=== PATIENT | female | born 1995 | race Caucasian/White ===

== ENCOUNTER → 2017-08-06 | Outpatient (CLI) | payer SELFPAY ==
[2017-08-06 13:09] VITALS: BP 127/78
--- NOTE | 2017-08-07 06:30 | Forensic Nursing Medical Dir ---
Forensic Nursing Note [employer] C[employer] Operator chart review completed. Case discussed with EMIR. LUNA LEONARDO MD Aug 07, 2017 06:30
== END ==
LOC: FNS 12:48
PROVIDERS: ATTEND Emergency Medicine
DX: Z02.89 Encounter for other administrative examinations (principal)

== ENCOUNTER 2017-12-17 21:10 | Emergency (ER) | payer SELFPAY | END 2017-12-17 21:27 | disposition left against medical advice (07) | LOC: EDUNIT# 21:10 → ER 21:14 | DX: R10.9 Unspecified abdominal pain (principal) ==

== ENCOUNTER → 2020-03-02 | Outpatient (CLI) | payer OTHER ==
--- NOTE | 2020-03-02 15:20 | Diagnostic Imaging Report ---
INDICATION: patient, survey. TECHNIQUE: Multiple real-time grayscale images were obtained over the gravid uterus. COMPARISON: None. FINDINGS: A single live intrauterine fetus is seen measuring at 21 weeks 6 days by composite measurements. Fetus is in transverse orientation with head on maternal right side. Amniotic fluid index is 10.96 cm, which is normal. Placenta is posterior and grade 1 with no evidence of previa. heart rate is 146 beats minute. Maternal adnexa were not well seen. survey shows normal-appearing bladder, stomach and intracranial ventricles. Normal four-chamber heart view is seen. Normal-appearing cord insertion and three-vessel cord are seen. Normal views of the spine are seen. kidneys are not well seen due to position. Biometrical measurements are as follows: Biparietal 5.11 cm, age 21 weeks 4 days. Head circumference 19.11 cm, age 21 weeks 3 days. Abdominal circumference 16.72 cm, age 21 weeks 6 days. Femur length 3.78 cm, age 22 weeks 1 days. Sonographic estimate age: 21 weeks 6 days. Sonographic estimated date of delivery: 07/07/2020. Estimated Weight: 454 gm (+/- 66 gm). LMP percentile: 35%. heart rate: 146 beats per minute. number: 1 of 1. IMPRESSION: Single live intrauterine fetus measuring 21 weeks 6 days in size, as described above. kidneys were not well seen due to position, survey is otherwise unremarkable. Consider limited follow-up as clinically warranted. Dictated by: Dictated on workstation # [id number]
== END ==
LOC: RAD 13:25
PROVIDERS: ATTEND Obstetrics & Gynecology
DX: Z36.9 Encounter for antenatal screening, unspecified (principal); Z3A.17 17 weeks gestation of pregnancy
CPT/HCPCS: 76805

== ENCOUNTER → 2020-05-24 | Outpatient (CLI) | payer OTHER ==
--- NOTE | 2020-05-24 14:03 | Diagnostic Imaging Report ---
INDICATION: Follow-up kidneys. TECHNIQUE: Multiple real-time grayscale images were obtained over the gravid uterus. COMPARISON: 03/02/2020. FINDINGS: There is a single live fetus in a cephalic presentation. heart rate was recorded at 136 bpm. Placenta is posterior. Amniotic fluid volume is normal. Cervical length is 4.1 cm. kidneys are visualized on today's study and unremarkable. IMPRESSION: Unremarkable limited obstetrical ultrasound. Dictated by: Dictated on workstation # [id number]
== END ==
LOC: RAD 11:43
PROVIDERS: ATTEND Nurse Practitioner Women's Health
DX: Z36.2 Encounter for other antenatal screening follow-up (principal)
CPT/HCPCS: 76816

== ENCOUNTER 2020-07-11 19:00 | Inpatient (IN) | payer OTHER ==
[2020-07-11] MEDS ORDERED: D5 LR IV SOLUTION 1,000 ML IV ONE (19:29)
[2020-07-11] MEDS ORDERED: MISOPROSTOL 100 MCG (CYTOTEC) TAB ONE (22:00)
[2020-07-11] MEDS ORDERED: NS IV 500 ML 500 ML ONE (22:00)
[2020-07-12] VITALS (39 sets, daily range): BP systolic 96–148; BP diastolic 53–94
[2020-07-12] MEDS ORDERED: MISOPROSTOL 100 MCG (CYTOTEC) TAB ONE (02:12)
[2020-07-12] MEDS ORDERED: D5 LR IV SOLUTION 1,000 ML IV ONE ×2 (02:16→10:13)
[2020-07-12] MEDS ORDERED: fentaNYL 2 mcg/ml BUPIVA 0.125 100 ML ONE ×2 (03:57→12:50)
[2020-07-12] MEDS ORDERED: fentaNYL INJECTION 100 MCG/2 ML AMP ONE (04:25)
[2020-07-12] MEDS ORDERED: BUPIVACAINE 0.25% 30 ML (SENSORCAINE) VIAL ONE (05:05)
[2020-07-12] MEDS ORDERED: LIDOCAINE PF 2% 5 ML (XYLOCAINE) VIAL ONE (05:05)
[2020-07-12] MEDS ORDERED: ONDANSETRON 4 MG/2 ML (SDV) Z0FRAN ONE ×2 (05:30→13:13)
[2020-07-12] MEDS ORDERED: OXYTOCIN PRE-MIX DRIP 500 ML IV ONE (06:49)
--- NOTE | 2020-07-12 07:10 | NUR ---
report received from EMIR Mccarty. care assumed of pt. admission completed during [facility] down time. see paper charting for further.
--- NOTE | 2020-07-12 08:12 | History & Physical-OB ---
OB - Chief Complaint & HPI Date/Time Date of Admission: Date of Admission: Jul 11, 2020 at 19:08 Date seen by a Provider: Jul 12, 2020 Time Seen by a Provider: 07:55 Chief Complaint/History OB-Reason for Admission/Chief: Onset of Labor Hx : 1 Hx Para: 0 Expected Date of Delivery: Jul 06, 2020 Gestational Age in Weeks: 40 Gestational Age in Days: 6 Indication for induction: post dates Admission Nurse Assessment Rev: Yes Allergies and Home Medications Allergies Coded Allergies: No Known Drug Allergies (Unverified , 07/17/18) Patient Home Medication List Home Medication List Reviewed: Yes OB - History Hx of Present Care: Yes Ultrasounds: Normal mid trimester US Obstetrical Complications: None Medical Complications: None Patient Past Medical History n/a Social History/Family History HIV/AIDS: No Sexually Transmitted Disease: No Immunizations Hepatitis A: No Hepatitis B: No Tetanus Booster (TDap): Less than 5yrs OB - Admission Exam Physical Exam HEENT: NCAT Heart: Rhythm Normal Lungs: Clear Abdomen: Gravid Extremities: Normal Reflexes: Normal Cervical Dilatation: 3cm Effacement: 75% Station: -1 Membranes: Intact Heart Rate: 130's Accelerations: Accelerations Present Decelerations: No Decelerations Short Term Variability: Present Fpc Variability: Average (6-25) Contractions on Admission: 6-10 Minutes Apart Intensity: Mild Patel Scoring Tool (Modified) Dilation (cm): 3-4cm (2) Effacement (%): 51-79% (2) Descent/Station: -2 (1) Cervix Consistency: Soft (2) Cervix Position: Anterior (2) Subtract 1 point for: Nulliparity (-1) Patel Score: 8 Labs Laboratory Tests Test 07/11/20 20:15 Range/Units OB - Assessment/Plan/Diagnosis Assessment Assessment: active labor Admission Dx 24 yo G1 @ 40.6 Post dates induction GBS neg Admission Status: Inpatient Order (span 2 midnights) Reason for Inpatient Admission: Induction of labor at term Plan Plan: Induction Induction Method: per Misoprostol Protocol SCOTTIE GAFFNEY DO Jul 12, 2020 08:12
[2020-07-12 12:26] LABS: CLARITY,URINE CLEAR; COLOR,URINE YELLOW; GLUCOSE, URINE (UA) NEGATIVE (NEGATIVE); KETONES,URINE NEGATIVE (NEGATIVE); NITRITE,URINE NEGATIVE (NEGATIVE); PH,URINE 6.5 (5-9); PROTEIN,URINE TRACE (NEGATIVE)
[2020-07-12 12:27] LABS: BACTERIA,URINE TRACE /HPF; BILIRUBIN,URINE NEGATIVE (NEGATIVE); LEUKOCYTE ESTERASE ,URINE NEGATIVE (NEGATIVE); RBC,URINE 0-2 /HPF; WBC,URINE RARE /HPF
[2020-07-12 12:28] LABS: HEMATOCRIT 33 % (35-52); HEMOGLOBIN 11.4 G/DL (11.5-16.0); LYMPHOCYTES % (AUTO) 20 % (12-44); MEAN CORPUSCULAR HEMOGLOBIN 32 PG (25-34); MEAN CORPUSCULAR HGB CONC 35 G/DL (32-36); MEAN CORPUSCULAR VOLUME 94 FL (80-99); MEAN PLATELET VOLUME 10.5 FL (7.4-10.4); MONOCYTES % (AUTO) 7 % (0-12); NEUTROPHILS % (AUTO) 71 % (42-75); PLATELET COUNT 259 10^3/uL (130-400); RED CELL DISTRIBUTION WIDTH 14.1 % (10.0-14.5); WHITE BLOOD COUNT 12.7 10^3/uL (4.3-11.0)
[2020-07-12 12:29] LABS: BASOPHILS % (AUTO) 0 % (0-10); EOSINOPHILS # (AUTO) 0.2 10^3/uL (0.0-0.3); EOSINOPHILS % (AUTO) 1 % (0-10); LYMPHOCYTES # (AUTO) 2.6 X 10^3 (1.0-4.0); MONOCYTES # (AUTO) 0.9 X 10^3 (0.0-1.0); NEUTROPHILS # (AUTO) 9.1 X 10^3 (1.8-7.8)
--- NOTE | 2020-07-12 13:15 | NUR ---
called to check on pt's status. update given. no new orders received.
[2020-07-12] MEDS ORDERED: OXYTOCIN PRE-MIX DRIP 500 ML IV SCH ×2 (15:31→16:55)
[2020-07-12] MEDS ORDERED: LACTATED RINGERS 1,000 ML IV SCH (15:31)
[2020-07-12] MEDS ORDERED: fentaNYL 2 mcg/ml BUPIVA 0.125 100 ML IV SCH (15:31)
[2020-07-12] MEDS ORDERED: D5 LR IV SOLUTION 1,000 ML IV SCH (15:31)
[2020-07-12] MEDS ORDERED: LIDOCAINE/EPI 2% 1:200,00 (XYLOCAINE) 10 ML VIAL ONE (15:35)
[2020-07-12] MEDS ORDERED: CATHETER FLUSH 10 ML SYR IV PRN (15:45)
[2020-07-12] MEDS ORDERED: MINERAL OIL CONCENTRATE 99.9% 15 ML UDC TOP PRN (15:45)
[2020-07-12] MEDS ORDERED: NS IV 1000 ML 500 ML IV ONE (15:45)
[2020-07-12] MEDS ORDERED: MEASLES,MUMPS,RUBELLA 1 EA INJ SQ ONE (17:00)
[2020-07-12] MEDS ORDERED: BENZOCAINE/MENTHOL (DERMOPLAST) 60 ML CAN TP PRN (17:00)
[2020-07-12] MEDS ORDERED: DIBUCAINE (NUPERCAINAL) 1% OINT 30 GM TOP PRN (17:00)
[2020-07-12] MEDS ORDERED: TETANUS,DIPTH,PERTUSS P/F (BOOSTRIX) 0.5 ML VIAL IM ONE (17:00)
[2020-07-12] MEDS ORDERED: WITCH HAZEL(TUCKS) 40 EA JAR TOP PRN (17:00)
--- NOTE | 2020-07-12 17:04 | OB Labor & Delivery Record ---
L&D History Date of Service Date of Service: Jul 12, 2020 History Expected Date of Delivery: Jul 06, 2020 Gestational Age in Weeks: 40 Hx : 1 Hx Para: 0 Complications Events: Routine care Operative Indications (Cesarea: N/A-Vaginal Delivery Intrapartal Events: Ineffective Pushing L&D Stage1 Stage One Onset of Labor - Date: Jul 12, 2020 Monitors and Tracing Monitor Mode: External Heart Rate: 140 Monitor Accelerations: Uniform Station: 0 Transport Conductor Variability: Average (6-10) Short Term Variability: Present Presentation: Vertex Vital Signs VS - Last 72 Hours, by Label 07/12/20 07/12/20 07/12/20 07/12/20 07:15 07:30 07:45 08:00 Temp 36.1 Pulse 64 64 58 73 Resp 18 18 18 18 B/P (MAP) 103/55 (71) 102/57 (72) 96/55 (69) 118/65 (82) Pulse Ox 98 100 94 99 O2 Delivery Room Air Room Air Room Air Room Air 07/12/20 07/12/20 07/12/20 07/12/20 08:15 08:30 08:45 09:00 Pulse 72 65 68 66 Resp 18 18 18 18 B/P (MAP) 121/62 (81) 112/56 (74) 109/59 (76) 105/55 (72) Pulse Ox 100 97 97 96 O2 Delivery Room Air Room Air Room Air Room Air 07/12/20 07/12/20 07/12/20 07/12/20 09:15 09:30 09:45 10:00 Pulse 64 62 87 63 Resp 18 18 18 18 B/P (MAP) 106/58 (74) 114/56 (75) 112/69 (83) 108/61 (77) Pulse Ox 97 97 95 94 O2 Delivery Room Air Room Air Room Air Room Air 07/12/20 07/12/20 07/12/20 07/12/20 10:15 10:30 10:45 11:00 Pulse 66 62 65 60 Resp 18 18 18 18 B/P (MAP) 111/60 (77) 107/55 (72) 114/56 (75) Pulse Ox 98 96 96 97 O2 Delivery Room Air Room Air Room Air Room Air 07/12/20 07/12/20 07/12/20 07/12/20 11:15 11:30 11:45 11:57 Temp 36.3 Pulse 57 57 61 Resp 18 18 18 B/P (MAP) 110/60 (77) 116/61 (79) Pulse Ox 97 96 99 O2 Delivery Room Air Room Air Room Air 07/12/20 07/12/20 07/12/20 07/12/20 12:00 12:15 12:30 12:45 Pulse 64 63 67 68 Resp 18 18 18 18 B/P (MAP) 118/62 (80) 112/58 (76) 122/74 (90) 117/65 (82) Pulse Ox 99 98 97 99 O2 Delivery Room Air Room Air Room Air Room Air 07/12/20 07/12/20 07/12/20 07/12/20 13:00 13:15 13:30 13:45 Pulse 65 84 75 69 Resp 18 18 18 18 B/P (MAP) 116/67 (83) 125/78 (94) 119/65 (83) 119/70 (86) Pulse Ox 99 97 100 99 O2 Delivery Room Air Room Air Room Air Room Air 07/12/20 07/12/20 07/12/20 14:00 14:15 14:30 Pulse 65 65 61 Resp 18 18 18 B/P (MAP) 115/60 (78) 117/63 (81) Pulse Ox 98 99 97 O2 Delivery Room Air Room Air Room Air Rupture of Membranes Spontaneous Ruture of Membrane: No Amniotic Membrane Rupture Time: 0753 Amniotic Membrane Fluid Desc.: Clear Vaginal Bleeding Description: Normal Show Progress/Notes Cytotec po administered overnight. AROm performed this AM. Patient progressed with Pitocin augmentation to complete and + 2 station. L&D Stage2 Stage Two Stage II Date: Jul 12, 2020 Monitors and Tracing Monitor Mode: External Heart Rate: 140 Monitor Decelerations: Variable Correction Variability: Average (6-10) Short Term Variability: Present Position: Right Occiput Anterior Presentation: Vertex Cord Descript/Complications Cord Vessel Description: 3 Vessels Complications Patient pushed vertex to +2-3 station at which point pushing became ineffective. Low vacuum extraction using Kiwi done. Cup placed over sagital suture at flexion point, and 550 mmHg applied to handpiece and gentle extension of the head done over RML. Vacuum then released. Delivery Type Delivery Method: Low Vacuum Extraction Anterior Shoulder: Left Episiotomy/Perineal Laceration Laceraction(s)/Extensions: Yes Episiotomy Description: Right Mediolateral Degree (describe repair) RML and bilateral labial lacerations repaired using 3-0 and 2-0 vicryl suture in usual fashion. Condition of Delivery 1 minute Comment: 7 5 minute Comment: 9 Notes Live female infant weight 9lbs 6 oz Condition of Infant Condition of Infant: Living Exam: No Observed Abnormalities Resuscitation Resuscitation: N/A - Spontaneous Resp L&D Stage3 Pictocin Pitocin Administration mu/min: 10 Pitocin ml/hr: 10 Pitocin Administration Comment: 30 mu wide open pitocin increased Placenta Delivery Placenta Delivery: Spontaneous Delivery Summary Summary Estimated blood loss (mL): 350 Attending at delivery: Scottie Gaffney DO Condition of Delivery Examined: Cervix Examined, Uterus Explored Post Hemorrhage: No Condition of Mother stable Condition of Infant (s) stable SCOTTIE GAFFNEY DO Jul 12, 2020 5:04 pm
[2020-07-12] MEDS ORDERED: DCS100C PO (17:06)
[2020-07-12] MEDS ORDERED: IBUP-844 PO (17:06)
[2020-07-12] MEDS ORDERED: BENZ78AE2 TP (17:06)
[2020-07-12] MEDS ORDERED: HYDR-3812 PO (17:06)
--- NOTE | 2020-07-12 17:07 | Discharge Inst-Women's Service ---
Discharge Inst-Women's Serv Depart Medication/Instructions New, Converted or Re-Newed RX: RX on Chart Final Diagnosis PPD 1 VAVD Problems Reviewed?: Yes Consults/Follow Up Additional Follow Up: Yes Orders/Referrals Dr. Gaffney in 6 weeks Activity Activity: Activity as Tolerated Driving Instructions: No Driving for 1 Week NO SMOKING: NO SMOKING Nothing Inside Vagina: No Douching, No Higbee, No Tampons Diet Discharge Diet: No Restrictions Symptoms to Report to : Bleeding Excessive, Pain Increased, Fever Over 101 Degrees F, Vaginal Bleeding Increase, Questions/Concerns For Any Problems or Questions: Contact Your Physician SCOTTIE GAFFNEY DO Jul 12, 2020 5:07 pm
[2020-07-12] MEDS: IBUPROFEN 600 MG (MOTRIN) TAB PO SCH (18:48)
--- NOTE | 2020-07-12 19:15 | NUR ---
Report given to next shift.
[2020-07-12] MEDS ORDERED: MISOPROSTOL 100 MCG (CYTOTEC) TAB PO SCH (19:45)
[2020-07-12] MEDS ORDERED: DOCUSATE SODIUM 100 MG (COLACE) CAP PO SCH (21:00)
--- NOTE | 2020-07-12 21:40 | NUR ---
Patient transferred via wheelchair to room 309. To bathroom where positive void was achieved. [facility] reviewed with patient. Patient demonstrated understanding. To bed via wheelchair. Call light within reach. Patient oriented to room and bed controls. Instructed patient to call for assistance the next time she wants to get out of bed. Patient verbalized understanding.
[2020-07-12] MEDS ORDERED: CATHETER FLUSH 10 ML SYR IV SCH ×2 (22:00)
[2020-07-13] MEDS: HYDROcodone/APAP 5 MG/325 MG (LORTAB) TAB PO PRN ×2 (00:03→09:22)
[2020-07-13] MEDS: IBUPROFEN 600 MG (MOTRIN) TAB PO SCH ×4 (01:34→16:41)
[2020-07-13 02:30] VITALS: BP 116/69
[2020-07-13 06:27] LABS: BASOPHILS % (AUTO) 0 % (0-10); EOSINOPHILS # (AUTO) 0.1 10^3/uL (0.0-0.3); EOSINOPHILS % (AUTO) 1 % (0-10); HEMATOCRIT 32 % (35-52); HEMOGLOBIN 10.6 G/DL (11.5-16.0); LYMPHOCYTES # (AUTO) 2.3 X 10^3 (1.0-4.0); LYMPHOCYTES % (AUTO) 15 % (12-44); MEAN CORPUSCULAR HEMOGLOBIN 32 PG (25-34); MEAN CORPUSCULAR HGB CONC 33 G/DL (32-36); MEAN CORPUSCULAR VOLUME 96 FL (80-99); MEAN PLATELET VOLUME 10.2 FL (7.4-10.4); MONOCYTES # (AUTO) 1.1 X 10^3 (0.0-1.0); MONOCYTES % (AUTO) 8 % (0-12); NEUTROPHILS # (AUTO) 11.3 X 10^3 (1.8-7.8); NEUTROPHILS % (AUTO) 76 % (42-75); PLATELET COUNT 211 10^3/uL (130-400); RED CELL DISTRIBUTION WIDTH 14.1 % (10.0-14.5); WHITE BLOOD COUNT 14.8 10^3/uL (4.3-11.0)
[2020-07-13 06:28] VITALS: BP 115/68
[2020-07-13] MEDS ORDERED: PRENATAL VITAMIN 1 EA TAB PO SCH (07:00)
--- NOTE | 2020-07-13 07:33 | Postpartum Progress Note ---
Note Note Day # 1 Subjective: Patient is without complaints. Ambulating, voiding. Tolerating a regular diet without nausea or vomiting. Normal lochia. Pain is well controlled with oral pain medications. Breast feeding. She is still having some pain at her episiotomy site and vaginal tear sites with decreasing bleeding. Objective: Physical Exam: General - Alert and oriented, no apparent distress Abdomen - Soft, appropriately tender to palpation, non-distended, fundus firm at umbilicus Extremities - no edema, negative Simon's bilaterally Heart- Regular rate and rhythm no murmurs, normal peripheral pulses Respiratory- Clear to auscultation bilaterally, no ronchi, rales, or crackles Assessment: post- day # 1, status post 1 vaginal delivery. Recovering well, hemodynamically stable Plan: Routine care. Encourage breast feeding. Encourage ambulation. Ferrous sulfate supplementation. Plan for discharge [] Vitals - Labs Vital Signs - I&O Vital Signs Date Time Temp Pulse Resp B/P (MAP) Pulse Ox O2 Delivery O2 Flow Rate FiO2 07/13/20 06:28 36.8 73 18 115/68 (84) 97 Room Air 07/13/20 02:30 36.5 68 18 116/69 (85) 97 Room Air 07/12/20 22:37 36.5 70 18 116/65 (82) 99 Room Air 07/12/20 18:30 72 18 124/72 (89) Room Air 07/12/20 18:15 74 18 118/64 (82) Room Air 07/12/20 17:15 85 18 103/70 (81) Room Air 07/12/20 17:00 89 18 128/94 (105) Room Air 07/12/20 16:20 88 18 118/56 (76) Room Air 07/12/20 16:15 109 18 130/69 (89) Room Air 07/12/20 16:00 78 18 148/53 (84) Room Air 07/12/20 15:45 100 18 129/82 (98) Room Air 07/12/20 15:30 66 18 122/65 (84) 100 Room Air 07/12/20 15:15 66 18 100 Room Air 07/12/20 15:00 66 18 126/69 (88) 100 Room Air 07/12/20 14:45 36.2 68 18 134/68 (90) 98 Room Air 8/20/20 14:30 61 18 97 Room Air 8/20/20 14:15 65 18 117/63 (81) 99 Room Air 8/20/20 14:00 65 18 115/60 (78) 98 Room Air 8/20/20 13:45 69 18 119/70 (86) 99 Room Air 8/20/20 13:30 75 18 119/65 (83) 100 Room Air 8/20/20 13:15 84 18 125/78 (94) 97 Room Air 8/20/20 13:00 65 18 116/67 (83) 99 Room Air 8/20/20 12:45 68 18 117/65 (82) 99 Room Air 8/20/20 12:30 67 18 122/74 (90) 97 Room Air 8/20/20 12:15 63 18 112/58 (76) 98 Room Air 8/20/20 12:00 64 18 118/62 (80) 99 Room Air 8/20/20 11:57 36.3 820/20 11:45 61 18 116/61 (79) 99 Room Air 8/20/20 11:30 57 18 110/60 (77) 96 Room Air 8/20/20 11:15 57 18 97 Room Air 8/20/20 11:00 60 18 114/56 (75) 97 Room Air 8/20/20 10:45 65 18 107/55 (72) 96 Room Air 8/20/20 10:30 62 18 111/60 (77) 96 Room Air 8/20/20 10:15 66 18 98 Room Air 8/20/20 10:00 63 18 108/61 (77) 94 Room Air 8/20/20 09:45 87 18 112/69 (83) 95 Room Air 8/20/20 09:30 62 18 114/56 (75) 97 Room Air 8/20/20 09:15 64 18 106/58 (74) 97 Room Air 8/20/20 09:00 66 18 105/55 (72) 96 Room Air 8/20/20 08:45 68 18 109/59 (76) 97 Room Air 8/20/20 08:30 65 18 112/56 (74) 97 Room Air 8/20/20 08:15 72 18 121/62 (81) 100 Room Air 8/20/20 08:00 36.1 73 18 118/65 (82) 99 Room Air 07/12/20 07:45 58 18 96/55 (69) 94 Room Air I & O 07/13/20 07:00 Intake Total 1100 ml Balance 1100 ml Labs Laboratory Tests 07/13/20 06:02: White Blood Count 14.8H, Red Blood Count 3.35L, Hemoglobin 10.6L, Hematocrit 32L , Mean Corpuscular Volume 96, Mean Corpuscular Hemoglobin 32, Mean Corpuscular Hemoglobin Concent 33, Red Cell Distribution Width 14.1, Platelet Count 211, Mean Platelet Volume 10.2, Neutrophils (%) (Auto) 76H, Lymphocytes (%) (Auto) 15, Monocytes (%) (Auto) 8, Eosinophils (%) (Auto) 1, Basophils (%) (Auto) 0, Neutrophils # (Auto) 11.3H, Lymphocytes # (Auto) 2.3, Monocytes # (Auto) 1.1H, Eosinophils # (Auto) 0.1, Basophils # (Auto) 0.0 ADRIÁN BALDERRAMA [facility] Jul 13, 2020 07:33
--- NOTE | 2020-07-13 07:45 | NUR ---
dr diop to floor. order clarified on surfak and colace orders.
[2020-07-13] MEDS ORDERED: DOCUSATE CALCIUM 240 MG (SURFAK) CAP PO SCH (09:00)
[2020-07-13] MEDS ORDERED: FERROUS SULF 325 MG (IRON) TAB PO SCH (09:00)
[2020-07-13 09:15] VITALS: BP 117/63
--- NOTE | 2020-07-13 10:43 | Anesthesia-Regional Post-Op ---
Regional Patient Condition Mental Status: Alert, Oriented x3 Circulation: Same as Pre-Op Headache: Absent Sensation: Full Recovery Motor Block: Absent Post Op Complications Complications None Follow Up Care/Instructions Patient Instructions None needed. Anesthesia/Patient Condition Patient is doing well, no complaints, stable vital signs, no apparent adverse anesthesia problems. SEBAS GOMEZ DO Jul 13, 2020 10:43
[2020-07-13 11:40] VITALS: BP 118/60
[2020-07-13 16:40] VITALS: BP 113/59
== END 2020-07-13 18:30 | disposition home or self-care (01) | DRG 807 ==
LOC: LDRP 19:08
PROVIDERS: ADMIT Obstetrics & Gynecology; ATTEND Obstetrics & Gynecology
PROC: 10D07Z6 Extraction of Products of Conception, Vacuum, Via Natural or Artificial Opening (ICD-10-PCS; principal; 2020-07-12)
PROC: 10907ZC Drainage of Amniotic Fluid, Therapeutic from Products of Conception, Via Natural or Artificial Opening (ICD-10-PCS; 2020-07-12)
PROC: 0UQMXZZ Repair Vulva, External Approach (ICD-10-PCS; 2020-07-12)
DX: O48.0 Post-term pregnancy (principal); Z37.0 Single live birth; Z3A.40 40 weeks gestation of pregnancy; O70.0 First degree perineal laceration during delivery
CPT/HCPCS: 36415; 81000; 85025; 86850; 86900; 86901